=== PATIENT | female | born 1940 | race Caucasian/White ===

== ENCOUNTER 2024-05-20 16:32 | Emergency (ER) | payer BC, MEDICARE, OTHER ==
[~2024-05-20] VITALS: Ht 154.9 cm; Wt 78.5 kg
[~2024-05-20 16:32] MED LIST: BIMA2.5D EACHEYE; BUPR150T27 PO; CLON-565 PO; ESCI10TA PO; ESTR1PAT60 TOP; FEXO180T94 PO; FLUTICASONE; MILN50TA PO; RIVA20TA PO; SOTA80TA PO; TRAM50TA2 PO
[2024-05-20 17:33] VITALS: RESP 16
[2024-05-20] MEDS: morphine 4 MG/ML inj SYRINge IV ONE (17:33)
[2024-05-20] MEDS ORDERED: CYCL10TA26 PO (17:49)
[2024-05-20] MEDS ORDERED: OXYC-658 PO (17:49)
[2024-05-20 19:01] LABS: BASOPHILS # (AUTO) 0.1 X10'3 (0-0.2); EOSINOPHILS # (AUTO) 0.5 X10'3 (0-0.9); EOSINOPHILS % (AUTO) 4.4 % (0-6); LYMPHOCYTES # (AUTO) 1.7 X10'3 (1.1-4.8); LYMPHOCYTES % (AUTO) 15.8 % (21-51); MEAN CORPUSCULAR HEMOGLOBIN 33.2 PG (27.0-31.0); MEAN CORPUSCULAR HGB CONC 34.3 g/dL (33.0-36.5); MEAN CORPUSCULAR VOLUME 96.9 FL (78-98); MEAN PLATELET VOLUME 7.2 FL (7.4-10.4); MONOCYTES # (AUTO) 1.4 X10'3 (0-0.9); MONOCYTES % (AUTO) 13.2 % (2-12); NEUTROPHILS # (AUTO) 7.1 X10'3 (1.8-7.7); NEUTROPHILS % (AUTO) 65.6 % (42-75); PLATELET COUNT 335 X10'3 (140-440); RED BLOOD COUNT 3.93 X10'6 (4.20-5.60); RED CELL DISTRIBUTION WIDTH 13.4 % (11.5-14.5); WHITE BLOOD COUNT 10.9 X10'3 (4.5-11.0)
[2024-05-20 19:13] LABS: APTT 26 SECONDS (22-32); PROTHROMBIN TIME 10.9 SECONDS (9.0-12.0)
[2024-05-20 19:14] LABS: ALANINE AMINOTRANSFERASE 32 U/L (12-78); ALBUMIN 3.9 G/DL (3.4-5.0); ALKALINE PHOSPHATASE 73 IU/L (46-116); ANION GAP 10 (8-16); ASPARTATE AMINO TRANSFERASE 15 U/L (10-37); BILIRUBIN,TOTAL 0.3 MG/DL (0.1-1.0); BLOOD UREA NITROGEN 16 MG/DL (7-18); BUN/CREATININE RATIO 14.4 (10.0-20.0); CALCIUM 8.9 MG/DL (8.5-10.1); CHLORIDE 97 MMOL/L (99-107); CREATININE 1.11 MG/DL (0.40-0.90); GLUCOSE 93 MG/DL (70-104); POTASSIUM 4.6 MMOL/L (3.5-5.1); SODIUM 135 MMOL/L (135-145); TOTAL CARBON DIOXIDE 28.3 MMOL/L (24-32); TOTAL PROTEIN 7.7 G/DL (6.4-8.2); eCRCL 28 ML/MIN; eGFR 47 ML/MIN
[2024-05-20] MEDS: cyclobenzaprine 10mg tablet PO ONE (20:21)
[2024-05-20] MEDS: oxyCODONE/APAP 5-325mg tablet PO ONE (20:22)
[2024-05-20 20:40] VITALS: BP 167/73; PULSE 75; TEMP 97.8; O2SAT 98
== END 2024-05-20 20:46 | disposition home or self-care (01) ==
LOC: ER 16:33
DX: S09.8XXA Other specified injuries of head, initial encounter (principal); M54.2 Cervicalgia; M54.89 Other dorsalgia; M79.7 Fibromyalgia; G89.29 Other chronic pain; M54.9 Dorsalgia, unspecified; Z88.2 Allergy status to sulfonamides; Z88.5 Allergy status to narcotic agent; Z91.040 Latex allergy status; Z79.01 Long term (current) use of anticoagulants; Z79.899 Other long term (current) drug therapy; W01.0XXA Fall on same level from slipping, tripping and stumbling without subsequent striking against object, initial encounter; Y93.89 Activity, other specified; Y92.099 Unspecified place in other non-institutional residence as the place of occurrence of the external cause; Y99.8 Other external cause status
CPT/HCPCS: 36415; 70450; 71045; 72074; 72100; 72125; 73560; 80053; 85025; 85610; 85730; 96374; 99285; J2270; L0172; A6258; A6449